=== PATIENT | female | born 1990 | race African-American/Black ===

== ENCOUNTER 2016-09-17 11:12 | Emergency (ER) | payer MEDICAID ==
[~2016-09-17] VITALS: Ht 157.5 cm; Wt 82.0 kg
[~2016-09-17 11:12] MED LIST: CYCL1TAB29 PO; DICL50TA3 PO
[2016-09-17 11:16] VITALS: BP 116/78; PULSE 58; RESP 24; TEMP 98.6; O2SAT 100
--- NOTE | 2016-09-17 11:35 | PD ---
Physical Exam Date Seen by Provider: Sep 17, 2016 Narrative Pt is a 26 year old female presenting to the ED with c/o vaginal bleeding and abdominal pain. LMP was 07/09/16. Pt is , bleeding started bleeding this morning. Pt came immediately to ED to be evaluated. A1. Pt reports abdominal cramping. Pt reports pain is a 10/10. Previous miscarriage at 13 weeks gestation. Pt denies any significant PMHx. Pt denies any urinary symptoms. VSS, awaiting bed placement. No PCP, no care as of yet. Data Data Last Documented VS Vital Signs Date Time Temp Pulse Resp B/P Pulse Ox O2 Delivery O2 Flow Rate FiO2 09/17/16 11:16 98.6 58 24 116/78 100 Room Air MDM Supervised Visit with CHALO: Randa Andrade Sep 17, 2016 11:35
== END 2016-09-17 12:00 | disposition left against medical advice (07) ==
LOC: NED 11:12
DX: O26.91 Pregnancy related conditions, unspecified, first trimester (principal); N93.9 Abnormal uterine and vaginal bleeding, unspecified; Z3A.09 9 weeks gestation of pregnancy
CPT/HCPCS: 99281; 99283

== ENCOUNTER 2016-09-21 21:21 | Emergency (ER) | payer MEDICAID ==
[~2016-09-21] VITALS: Ht 157.5 cm; Wt 80.0 kg
[2016-09-21 21:24] VITALS: BP 111/59; PULSE 70; RESP 16; TEMP 97.6; O2SAT 99
[2016-09-21] MEDS ORDERED: SODIUM CHLOR 0.9% 1000 ML INJ 1,000 ML IV ONE (23:10)
[2016-09-21 23:56] LABS: AUTOMATED NEUTROPHIL # 5.9 TH/MM3 (1.8-7.7); BASOPHIL # 0.1 TH/MM3 (0-0.2); BASOPHIL % 0.9 % (0.0-2.0); EOSINOPHIL # 0.3 TH/MM3 (0-0.4); EOSINOPHIL % 2.9 % (0.0-4.0); HEMATOCRIT 35.1 % (35.0-46.0); HEMO FLAGS DIFF FINAL; LYMPH % 33.9 % (9.0-44.0); LYMPHOCYTE # 3.7 TH/MM3 (1.0-4.8); MEAN CELL VOLUME 86.7 FL (80.0-100.0); MEAN CORPUSCULAR HEMOGLOBIN 28.9 PG (27.0-34.0); MEAN CORPUSCULAR HGB CONC 33.3 % (32.0-36.0); MONO % 8.6 % (0.0-8.0); NEUT % 53.7 % (16.0-70.0); PLATELET COUNT 309 TH/MM3 (150-450); RED BLOOD COUNT 4.05 MIL/MM3 (4.00-5.30); RED CELL DISTRIBUTION WIDTH 13.6 % (11.6-17.2); WHITE BLOOD COUNT 10.9 TH/MM3 (4.0-11.0)
--- NOTE | 2016-09-22 00:18 | PD ---
HPI Chief Complaint: Related Problem Time Seen by Provider: 23:08 Travel History International Travel<30 days: No Contact w/Intl Traveler<30days: No Traveled to known affect area: No History of Present Illness HPI The patient is a 26 year old female with history of 1 prior miscarriage who presents to the [facility] emergency department with a history of vaginal bleeding that first began on September 17. The patient was initially seen in the emergency department at this facility, however prior to her workup being done she left AGAINST MEDICAL ADVICE. The patient and went to [facility] and had laboratory studies done and an ultrasound done. She reports that she was noted to have an intrauterine at 6 weeks gestation, however no heart beat was able to be identified. She was told to follow- up with her INTEGRATED MARKETING MANAGER. She has not been able to make an appointment with an OB/ STRETCHING PRESS OPERATOR yet. She is here today for follow-up and repeat laboratory studies. She reports that she continues to have some bleeding and cramping, although the cramping has improved. She reports that she has had some blood clots that passed. The patient's blood type according to the record is O+. She reports that she did have a pelvic examination done at the other facility. She denies having any other vaginal discharge. She denies having any fevers or chills. She reports today that her last menstrual cycle was July 21, 2016. The patient denies any recent fevers, cough, congestion, neck pain, chest pain, shortness of breath, vomiting, diarrhea, urinary symptoms, or neurologic symptoms. PFS Past Medical History Narrative Medical The patient's past medical history is significant for reportedly none. Her OB history is significant for having gestational diabetes that was dietarily controlled. Medical History: Denies Significant Hx Diminished Hearing: No ?: LMP: 07/21/2016 : 2 Miscarriage: 1 Past Surgical History Narrative Surgical The patient's past surgical history is significant for 1 prior . Section: Yes Social History Alcohol Use: No Tobacco Use: No Substance Use: No Allergies-Medications (Allergen,Severity, Reaction): Coded Allergies: No Known Allergies (Verified , 09/21/16) Reported Meds & Prescriptions Reported Meds & Active Scripts Active Review of Systems Except as stated in HPI: all other systems reviewed are Neg General / Constitutional: No: Fever Eyes: No: Visual changes HENT: No: Headaches Cardiovascular: No: Chest Pain or Discomfort Respiratory: No: Shortness of Breath Gastrointestinal: No: Nausea, Vomiting, Diarrhea, Abdominal Pain Genitourinary: Positive: Pelvic Pain, Vaginal Bleeding, No: Urgency, Frequency , Dysuria Musculoskeletal: No: Pain Skin: No Rash Neurologic: No: Weakness Psychiatric: No: Depression Endocrine: No: Polydipsia Hematologic/Lymphatic: No: Easy Bruising Physical Exam Narrative General: The patient is a well-developed well-nourished female in no acute distress. Head and Neck exam: Head is normocephalic atraumatic. Eyes: Pupils are equal round and reactive to light. Nose: Midline septum with pink mucous membranes Mouth: Dentition unremarkable. Moist mucus membranes. Posterior oropharynx is not erythematous. No tonsillar hypertrophy. Uvula midline. Airway patent. Neck: No palpable lymphadenopathy. No nuchal rigidity. No thyromegaly. Cardiovascular: Regular rate and rhythm without murmurs, gallops, or rubs. Lungs: Clear to auscultation bilaterally. No wheezes, rhonchi, or rales. Abdomen: Soft, with reported suprapubic discomfort on palpation, no other tenderness on palpation of the other quadrants of the abdomen. No guarding, rebound, or rigidity. No tenderness on palpation of McBurney's point. Extremities: No clubbing, cyanosis, or edema. No calf tenderness on palpation. Back: No costovertebral angle tenderness to palpation. Neurologic Exam: Grossly nonfocal. Skin Exam: No rash noted. Intact skin that is warm and dry. Data Data Last Documented VS Vital Signs Date Time Temp Pulse Resp B/P Pulse Ox O2 Delivery O2 Flow Rate FiO2 09/21/16 21:24 97.6 70 16 111/59 99 Orders Beta Hcg (Quant/Titer) (09/21/16 23:10) Complete Blood Count With Diff (09/21/16 23:10) Gc And Chlamydia Pcr (09/21/16 23:10) Wet Prep Profile (09/21/16 23:10) Urinalysis - C+S If Indicated (09/21/16 23:10) Iv Access Insert/Monitor (09/21/16 23:10) Ecg Monitoring (09/21/16 23:10) Sodium Chlor 0.9% 1000 Ml Inj (Ns 1000 M (09/21/16 23:10) Labs Laboratory Tests Test 09/21/16 23:36 White Blood Count 10.9 TH/MM3 Red Blood Count 4.05 MIL/MM3 Hemoglobin 11.7 GM/DL Hematocrit 35.1 % Mean Corpuscular Volume 86.7 FL Mean Corpuscular Hemoglobin 28.9 PG Mean Corpuscular Hemoglobin 33.3 % Concent Red Cell Distribution Width 13.6 % Platelet Count 309 TH/MM3 Mean Platelet Volume 8.0 FL Neutrophils (%) (Auto) 53.7 % Lymphocytes (%) (Auto) 33.9 % Monocytes (%) (Auto) 8.6 % Eosinophils (%) (Auto) 2.9 % Basophils (%) (Auto) 0.9 % Neutrophils # (Auto) 5.9 TH/MM3 Lymphocytes # (Auto) 3.7 TH/MM3 Monocytes # (Auto) 0.9 TH/MM3 Eosinophils # (Auto) 0.3 TH/MM3 Basophils # (Auto) 0.1 TH/MM3 CBC Comment DIFF FINAL Differential Comment Human Chorionic Gonadotropin, 41 MIU/ML Quant MDM Medical Decision Making Medical Screen Exam Complete: Yes Emergency Medical Condition: Yes Medical Record Reviewed: Yes Differential Diagnosis threatened miscarriage, versus subchorionic hemorrhage Narrative Course During the course of the patients emergency department visit, the patients history, examination, and differential diagnosis were reviewed with the patient. The patient had IV access obtained and blood work sent for analysis. The patient's records from [facility] will be obtained. The patient was initially provided normal saline 1 L IV fluid bolus. The patients laboratory studies were reviewed and remarkable for a white count of 10.9, hemoglobin 11.7, platelets 309 with a monocytosis of 8.6, therefore as the patient's quantitative beta hCG is decreasing with time the patient's symptoms are consistent with a miscarriage. The patient's hemoglobin at that facility was 12.3, therefore her hemoglobin has been stable. The patient's ultrasound at that facility revealed a single intrauterine gestation with ultrasound age of 5 weeks 6 days and no demonstratable heart tones in keeping with a of uncertain viability, at that time they recommended follow-up pelvic ultrasound in 7 days. The patient is again instructed regarding the importance of following up with an INTEGRATED MARKETING MANAGER. She is given the name of the head orthopedic team physician on-call for follow-up, Dr. Pena. The patient is resting comfortably and feels better, is alert and in no distress. The patients results and examination findings were discussed with the patient. The repeat examination is unremarkable and benign. The history, exam, diagnostic testing, and current condition do not suggest any significant pathology to warrant further testing, continued ED treatment, admission, or surgical evaluation at this point. The vital signs have been stable. The patient does not have uncontrollable pain, intractable vomiting, or other significant symptoms. The patient's condition is stable and appropriate for discharge. The patient will pursue further outpatient evaluation with a primary care physician or other designated or consulting physician as indicated in the discharge instructions. The patient expressed understanding and was agreeable with this plan. Diagnosis Primary Impression: Threatened miscarriage in early Referrals: Bob Foster MD 2 days Patient Instructions: General Instructions, Miscarriage (ED) Additional Instructions: The patient is instructed on pelvic rest and the importance of following up with a head orthopedic team physician this week. Med/Other Pt SpecificInfo: Prescription(s) given Disposition: DISCHARGE HOME Condition: Stable Mily Becerra MD Sep 22, 2016 00:18
[2016-09-22 00:28] LABS: BETA HCG QUANT 41 MIU/ML (0-5)
== END 2016-09-22 02:30 | disposition home or self-care (01) ==
LOC: NEPC 21:21
DX: O20.0 Threatened abortion (principal); Z3A.01 Less than 8 weeks gestation of pregnancy
CPT/HCPCS: 84702; 85025; 99284; J7030